=== PATIENT | female | born 1970 | race African-American/Black ===

== ENCOUNTER 2019-12-09 10:29 | Outpatient (CLI) | payer OTHER, SELFPAY ==
[2019-12-09 10:57] LABS: INR 2.1; Prothrombin Time 21.4 Seconds (9.64-11.0)
== END 2019-12-09 10:30 | disposition home or self-care (01) ==
PROVIDERS: PCP Physician Assistant; Visit Provider Physician Assistant
DX: Z95.2 Presence of prosthetic heart valve (principal)
CPT/HCPCS: 36415; 85610

== ENCOUNTER 2020-01-16 10:02 | Outpatient (CLI) | payer OTHER, SELFPAY ==
[2020-01-16 10:47] LABS: INR 2.2; Prothrombin Time 22.5 Seconds (9.64-11.0)
== END 2020-01-16 10:03 | disposition home or self-care (01) ==
LOC: CHSLAB 10:05
PROVIDERS: PCP Physician Assistant; Visit Provider Physician Assistant
DX: Z95.2 Presence of prosthetic heart valve (principal)
CPT/HCPCS: 36415; 85610

== ENCOUNTER 2020-02-04 12:45 | Outpatient (CLI) | payer OTHER, SELFPAY ==
[2020-02-04 13:07] LABS: INR 1.3; Prothrombin Time 13.4 Seconds (9.64-11.0)
== END 2020-02-04 12:46 | disposition home or self-care (01) ==
LOC: CHSLAB 12:46
PROVIDERS: PCP Physician Assistant; Visit Provider Physician Assistant
DX: Z95.2 Presence of prosthetic heart valve (principal)
CPT/HCPCS: 36415; 85610

== ENCOUNTER 2020-03-11 14:51 | Outpatient (CLI) | payer OTHER, SELFPAY ==
[2020-03-11 15:31] LABS: INR 1.8; Prothrombin Time 18.1 Seconds (9.64-11.0)
== END 2020-03-11 14:52 | disposition home or self-care (01) ==
LOC: CHSLAB 14:53
PROVIDERS: PCP Physician Assistant; Visit Provider Physician Assistant
DX: I48.91 Unspecified atrial fibrillation (principal)
CPT/HCPCS: 36415; 85610

== ENCOUNTER 2020-05-17 07:43 | Outpatient (CLI) | payer OTHER, SELFPAY ==
--- NOTE | ~2020-05-17 | US_ITS ---
US abdomen complete EXAMINATION: US Abdomen Complete INDICATION: Leukopenia PROCEDURE: Realtime High Resolution abdomen ultrasound. COMPARISON: No prior studies for comparison FINDINGS: There is a gallbladder polyp. No gallstones, gallbladder wall thickening or pericholecystic fluid. Common bile duct measures 3 mm. Liver echotexture fatty infiltration of the liver.. Pancreas within normal limits. Pancreatic tail is obscured by bowel gas. Spleen is unremarkeable. Renal echotexture is within normal limits bilater ally without hydronephrosis, contour deforming mass or renal stone. Right kidney measures 8.7 cm. Lef t kidney measures 8.4 cm. Visualized aspects of the aorta and IVC are within normal limits. Portal vein is patent. No sonograph ic Gonzales's sign indicated by the technologist. IMPRESSION: 1: Gallbladder polyp measuring 5 mm 2: Hepatic steatosis. Reviewed, dictated and finalized at location A. GER WOUND
== END 2020-05-17 07:44 | disposition home or self-care (01) ==
PROVIDERS: PCP Physician Assistant; Visit Provider Internal Medicine Hematology & Oncology
DX: D72.819 Decreased white blood cell count, unspecified (principal); K76.0 Fatty (change of) liver, not elsewhere classified; K82.4 Cholesterolosis of gallbladder
CPT/HCPCS: 76700

== ENCOUNTER 2021-03-30 09:58 | Emergency (ER) | payer OTHER, SELFPAY ==
[2021-03-30 10:25] VITALS: BP 134/101; PULSE 85; RESP 20; TEMP 36.7; O2SAT 100
--- NOTE | 2021-03-30 11:02 | ED.RECABL ---
HPI - Recheck/Abnormal Lab/Rx General Chief Complaint: Recheck/Abnormal Lab/Rx Stated Complaint: INR IS HIGH DR SENT TO ER Source: patient and family Mode of arrival: ambulatory History of Present Illness HPI narrative: This is a 50-year-old female with a history of aortic valve replacement currently on Coumadin 5mg daily, the patient had a PT INR drawn and was advised to come to the emergency department. Patient has no bleeding is in no acute distress no nosebleeds, no rectal bleeding currently no bleeding whatsoever the patient is comfortable with no chest pain no shortness of breath no headaches no abdominal pain. Related Data Home Medications Medication Instructions Recorded Confirmed amlodipine 10 mg PO DAILY 03/30/21 03/30/21 bupropion HCl 150 mg PO BID 03/30/21 03/30/21 folic acid 1 mg PO DAILY 03/30/21 03/30/21 metoprolol succinate 50 mg PO DAILY 03/30/21 03/30/21 quetiapine 25 mg PO DAILY 03/30/21 03/30/21 warfarin 5 mg PO DAILY 03/30/21 03/30/21 Allergies Allergy/AdvReac Type Severity Reaction Status Date / Time doxycycline Allergy Unknown Hives Unverified 03/30/21 10:33 Review of Systems Review of Systems: All systems reviewed & are unremarkable except as noted in HPI and below PMFSH Past Medical History Medical History History of Coumadin therapy Exam Const: General: no acute distress Orientation/consciousness: patient oriented x3 HENMT: Head: normal to inspection Eyes: Conjunctivae: conjunctivae normal Pupils: Equal, round and reactive pupils present EOM: EOMs intact bilaterally Direct Ophthalmoscopy: no photophobia Neck: Neck: normal visual inspection Chest: Chest palpation & inspection: normal inspection of the chest Resp: Effort & Inspection: normal respiratory effort Cardio: Rate: regular rate Rhythm: regular rhythm GI: GI Palp: Yes Soft to palpation Percussion: Yes normal to percussion : General: Yes no CVA tenderness Urinary Catheter: Urinary Catheter: patent and draining Skin: General skin exam: normal color Rashes: no rashes Neuro: General: patient oriented x3 and moves all extremities Extrem: General: normal to inspection and no pedal edema Psych: Mental Status: mental status grossly normal Affect: normal affect Course Course Emergency Course: patient received 10mg of IM vitamin K, and will check PT INR in 24hours her current PT INR in the ER was 8 advised to not take her Coumadin this evening and check PT INR in the morning Vital Signs Vital signs: Vital Signs Temperature 36.7 C 03/30/21 10:25 Pulse Rate 85 03/30/21 10:25 Respiratory Rate 20 03/30/21 10:25 Blood Pressure 134/101 H 03/30/21 10:25 Pulse Oximetry 100 03/30/21 10:25 Temperature 36.7 C 03/30/21 10:25 Pulse Rate 85 03/30/21 10:25 Respiratory Rate 20 03/30/21 10:25 Blood Pressure 134/101 H 03/30/21 10:25 Pulse Oximetry 100 03/30/21 10:25 MDM - Recheck/Abnormal Lab/Rx Lab Data Labs: Lab Results 03/30/21 Range/Units 10:25 PT 90.0 H (9.50-12.10) Seconds INR 8.0 H* Critical Care Time Critical Care Time Critical Care Time: No Discharge Plan Discharge Clinical Impression: Warfarin-induced coagulopathy Patient Disposition: Home, Self-Care Condition: Stable Instructions: Antibiotic Form Additional Instructions: order given to have PT INR drawn at approximately 10:00 a.m. tomorrow March 31, 2021 and results to her provider. Advised to hold her nighttime dose of Coumadin. Prescriptions: No Action quetiapine 25 mg tablet 25 mg PO DAILY RF: 0 bupropion HCl 150 mg tablet sustained-release 12 hr 150 mg PO BID RF: 0 metoprolol succinate 50 mg tablet extended release 24 hr 50 mg PO DAILY RF: 0 amlodipine 10 mg tablet 10 mg PO DAILY RF: 0 warfarin 5 mg tablet 5 mg PO DAILY RF: 0 folic acid 1 mg tablet 1 mg PO DAILY RF: 0 Foll
[2021-03-30] MEDS: PHYTONADIONE INJ 10 MG/ML AMP IM (11:07)
[2021-03-30 11:35] VITALS: BP 132/99; PULSE 85; RESP 20; O2SAT 99
== END 2021-03-30 11:38 | disposition home or self-care (01) ==
PROVIDERS: Emergency Provider Emergency Medicine; PCP Physician Assistant
DX: D68.9 Coagulation defect, unspecified (principal); Z79.01 Long term (current) use of anticoagulants
CPT/HCPCS: 36415; 85610; 96372; 99283; J3430

== ENCOUNTER 2023-04-07 12:14 | Emergency (ER) | payer OTHER, SELFPAY ==
--- NOTE | ~2023-04-07 | CT_ITS ---
EXAMINATION: CT abdomen pelvis w con DATE: 04/07/2023 13:42 INDICATION: LUQ and left flank pain w/ n/v/constipation TECHNIQUE: Computed tomography (CT) of the abdomen and pelvis was performed with 100 mL Omnipaque-350 intravenous contrast. Automated exposure control and iterative reconstruction technique were employe d. The dose-length product was 175.97 mGy-cm. COMPARISON: Ultrasound abdomen 05/17/2020. FINDINGS: Lower thorax: Scattered bilateral tree-in-bud opacities. Scattered air cysts. Dystrophic/granulomatou s calcification cardiac valve replacements. Liver: Normal. Biliary/Gallbladder: Gallbladder is normal. No bile duct dilation. Pancreas: No mass or duct dilation. Spleen: Normal. Adrenals:No mass. Kidneys: Wedge-shaped segmental hypodensity in the left midpole. Subtle cortical rim sign. No suspici ous mass, hydronephrosis, or obstructing calcification. GI tract: Mild distal esophageal and gastric wall edema. No small or large bowel dilation. Appendix n ot confidently visualized Mesentery/Peritoneum: No ascites, mass, or free air. Retroperitoneum: No mass. Atherosclerotic abdominal aortic and/or arterial calcifications. Pelvis: Pelvic organs are within normal limits. Subcentimeter left perineal cyst. Soft Tissues: Soft tissues and body wall unremarkable. Bones: No acute osseous finding. IMPRESSION: Mild esophagitis/gastritis. Subsegmental left midpole renal infarct. Reviewed, dictated and finalized at location K. HER OPERATOR
[2023-04-07 12:17] VITALS: BP 155/104; PULSE 99; RESP 18; TEMP 36.1; O2SAT 100
--- NOTE | 2023-04-07 12:20 | ED.ABDPAIN ---
HPI - Abdominal Pain General Chief Complaint: Abdominal Pain Stated Complaint: L side/back pain Time Seen by Provider: 04/07/23 12:20 Source: patient and RN notes reviewed Mode of arrival: ambulatory Limitations: no limitations History of Present Illness MD elicited complaint: flank pain Onset (ago): day(s) (1) Pain Consistency: intermittent Location: LUQ and L flank Severity: moderate Quality: stabbing and sharp Radiation: none Migration to: no migration Exacerbating factors: nothing Relieving factors: nothing Associated symptoms: nausea and vomiting Related Data Home Medications Medication Instructions Recorded Confirmed amlodipine 10 mg tablet 10 mg PO DAILY 03/30/21 04/07/23 bupropion HCl 150 mg tablet,12 hr 150 mg PO BID 03/30/21 04/07/23 sustained-release folic acid 1 mg tablet 1 mg PO DAILY 03/30/21 04/07/23 escitalopram oxalate 10 mg tablet 10 mg PO DAILY 04/07/23 04/07/23 gabapentin 300 mg capsule 300 mg PO TID 04/07/23 04/07/23 potassium chloride 20 mEq 20 meq PO DAILY 04/07/23 04/07/23 tablet,extended release(part/cryst) (Klor-Con M) rivaroxaban 15 mg tablet (Xarelto) 15 mg PO DAILY 04/07/23 04/07/23 Allergies Allergy/AdvReac Type Severity Reaction Status Date / Time doxycycline Allergy Unknown Hives Verified 04/07/23 12:28 Review of Systems Review of Systems: All systems reviewed & are unremarkable except as noted in HPI and below PMFSH Past Medical History Medical History (Updated 04/07/23 @ 15:11 by Bebeto Moreland MD) History of Coumadin therapy Surgical History Surgical History (Updated 04/07/23 @ 12:36 by Bebeto Moreland MD) Aortic valve replaced Mitral valve replaced Exam Const: General: no acute distress, alert and ill appearing acutely Nutritional Appearance: well nourished and thin Orientation/consciousness: patient oriented x3 Limitations: no limitations HENMT: Head: normal to inspection Ears: external ears normal Face/Nose/Sinus: Normal external nose present Face and sinus: normal facial exam Mouth: Yes moist mucous membranes Eyes: Conjunctivae: conjunctivae normal Pupils: Equal, round and reactive pupils present EOM: EOMs intact bilaterally Neck: Neck: normal visual inspection Resp: Effort & Inspection: normal respiratory effort Auscultation: clear to auscultation bilaterally Cardio: Rate: regular rate Rhythm: regular rhythm Heart sounds: Murmur heart sound present continuous holo, IV/, at the apex and at the left sternal border ( with opening snap) GI: GI Palp: Yes Soft to palpation, Yes Tenderness to palpation present (GI) ( moderate LUQ) and Yes Guarding due to palpation present (GI) ( moderate LUQ) Auscultation: normal bowel sounds Back/Spine/Pelvis: Back: CVA tenderness ( moderate left flank) Cervical Spine: cervical ROM normal Thoracic/Lumbar Spine: thoraco-lumbar ROM normal Skin: General skin exam: normal color Rashes: no rashes Neuro: General: patient oriented x3, moves all extremities, no focal motor deficits and CN's II-XI intact bilaterally Speech: normal speech Gait exam (Neuro): Normal gait present Extrem: General: normal to inspection and no clubbing, cyanosis or edema Psych: Mental Status: mental status grossly normal Affect: normal affect Attitude: cooperative MDM - Abdominal Pain MDM Narrative Medical decision making narrative: discussion with the radiologist regarding the report. I asked him if this was new and he said it was acute injury. I asked about considering a CT angiogram. He felt that there would be no new findings there must be a thrombus and that she still has a wedge infarction of the left kidney. I discussed findings with the patient she voiced understanding and advised that she should either see a vascular surgeon or possibly a receiving specialist. For now put her on some pain medication and anti nausea medication. Differential Diagnosis Differential diagnosis: Likely calculus of kidney, constipation, diverticul
[2023-04-07 12:38] LABS: Bilirubin Urine 3+ (Negative); Blood Urine Trace-Intact (Negative); Glucose Urine UA Negative (Negative); Ketones Urine 3+ (Negative); Leukocyte Esterase Ur Negative LEU/UL (Negative); Nitrate Urine Negative (Negative); Protein Urine 1+ (Negative); Specific Grav Ur >= 1.030 (1.010-1.020)
[2023-04-07] MEDS: KETOROLAC 30 MG/ML VIAL (*BKC) IV PUSH (12:42)
[2023-04-07 12:48] LABS: Color Urine Dark Yellow (Yellow)
[2023-04-07 12:49] LABS: Add Urine Microscopic? YES; Amorphous Sediment Urine Few; Appearance Urine Slightly Cloudy (Clear); Bacteria Urine 1+ /hpf; Mucus Urine Heavy /lpf; RBC Urine 0-2 /hpf (0-2); Squamous Epithelial Cell Urine Many /hpf (Few)
[2023-04-07 13:08] LABS: Basophils Absolute Auto 0.02 K/mm3 (0.00-0.10); Basophils Percent Auto 0.3 % (0.0-1.0); Eosinophils Absolute Auto 0.02 K/mm3 (0.02-0.50); Eosinophils Percent Auto 0.3 % (1.0-6.0); Hematocrit 38.4 % (35.0-49.0); Hemoglobin 13.4 g/dL (12.0-15.0); Immature Granulocyte Absolute 0.03 K/mm3 (0.00-0.00); Immature Granulocyte Percent A 0.4 % (0.0-0.0); Lymphocytes Absolute Auto 0.35 K/mm3 (1.10-4.50); Lymphocytes Percent Auto 4.5 % (18.0-42.0); Mean Corpuscular HGB Conc 34.9 g/dL (32.0-36.0); Mean Corpuscular Volume 106.1 fL (78.0-102.0); Mean Platelet Volume 10.3 fl (9.2-11.8); Monocytes Absolute Auto 0.63 K/mm3 (0.10-0.90); Monocytes Percent Auto 8.2 % (2.0-11.0); Neutrophils Absolute Auto 6.7 K/mm3 (1.7-7.2); Neutrophils Percent Auto 86.3 % (50.0-70.0); Platelet Count Result 210 K/mm3 (150-420); Red Blood Count 3.62 M/mm3 (4.20-5.40); Red Cell Distribution Width 12.5 % (11.6-14.4); White Blood Count 7.7 K/mm3 (4.8-10.8)
[2023-04-07 13:18] LABS: Pregnancy On Board Control Positive; Urine Pregnancy Test Negative
[2023-04-07 13:19] LABS: Anion Gap 16 mmol/L (8-16); Blood Urea Nitrogen 18 mg/dL (7-18); CRP 0.7 mg/dL (0.0-0.9); Calcium 9.9 mg/dL (8.5-10.1); Carbon Dioxide 24 mmol/L (21-32); Chloride 95 mmol/L (98-108); Estimated Glomerular Filt Rate > 60; Glucose 88 mg/dL (70-99); Osmolality Calculated 280 mOsm/kg (285-295); Potassium 3.3 mmol/L (3.5-5.1); Sodium 135 mmol/L (136-145)
[2023-04-07 14:09] VITALS: BP 118/81; PULSE 91; RESP 20; O2SAT 99
[2023-04-07 15:14] VITALS: BP 135/87; PULSE 87; RESP 18; TEMP 36.7; O2SAT 98
== END 2023-04-07 15:21 | disposition home or self-care (01) ==
PROVIDERS: Emergency Provider Emergency Medicine; PCP Physician Assistant
DX: N28.0 Ischemia and infarction of kidney (principal); Z79.899 Other long term (current) drug therapy; Z79.01 Long term (current) use of anticoagulants
CPT/HCPCS: 36415; 74177; 80048; 81001; 81025; 85025; 86140; 96374; 99284; J1885; Q9967

== ENCOUNTER 2023-11-15 15:18 | Emergency (ER) | payer OTHER, SELFPAY ==
--- NOTE | ~2023-11-15 | XR_ITS ---
EXAMINATION: XR ankle LT min 3V DATE: 11/15/2023 15:45 INDICATION: Left ankle injury and pain. TECHNIQUE: 4 views of left ankle were obtained. COMPARISON: None. FINDINGS: Bone alignment is normal. No fracture. Joint spaces are normal. IMPRESSION: 1. No fracture. Reviewed, dictated and finalized at location A. IMPRESSION: 1. No fracture.
[2023-11-15 15:20] VITALS: BP 115/90; PULSE 95; RESP 18; TEMP 36.1; O2SAT 97
--- NOTE | 2023-11-15 15:22 | ED.LOWEXIN ---
HPI - Extremity Injury (Lower) General Chief Complaint: Extremity Injury, Lower Stated Complaint: left ankle pain Time Seen by Provider: 11/15/23 15:21 Source: patient Mode of arrival: wheelchair Limitations: no limitations History of Present Illness HPI Narrative: Patient is a 52-year-old female with a left ankle injury today. She was staying on the roof for car and started to step down using the door handle and her left ankle slipped and sustained injury. This was an accident. She was playing with the grand kids. MD complaint: ankle injury ( Left) Onset (ago): hour(s) (2) Injury: Left: ankle Type of Injury: blunt and inversion Place: street/outdoors Severity: moderate Severity scale (1-10): 7 Relieving factors: cold therapy and immobilization Exacerbating factors: movement and palpation Context: direct blow Associated symptoms: snap/pop sensation, swelling, numbness, tingling and unable to bear weight Other symptoms: none Treatments prior to arrival: cold therapy Related Data Home Medications Medication Instructions Recorded Confirmed amlodipine 10 mg tablet 10 mg PO DAILY 03/30/21 04/07/23 bupropion HCl 150 mg tablet,12 hr 150 mg PO BID 03/30/21 04/07/23 sustained-release folic acid 1 mg tablet 1 mg PO DAILY 03/30/21 04/07/23 escitalopram oxalate 10 mg tablet 10 mg PO DAILY 04/07/23 04/07/23 gabapentin 300 mg capsule 300 mg PO TID 04/07/23 04/07/23 potassium chloride 20 mEq 20 meq PO DAILY 04/07/23 04/07/23 tablet,extended release(part/cryst) (Klor-Con M) rivaroxaban 15 mg tablet (Xarelto) 15 mg PO DAILY 04/07/23 04/07/23 Allergies Allergy/AdvReac Type Severity Reaction Status Date / Time doxycycline Allergy Unknown Hives Verified 04/07/23 12:28 Review of Systems Review of Systems: All systems reviewed & are unremarkable except as noted in HPI and below Constitutional: Constitutional: Reports no additional constitutional complaints Eyes: Eyes: Reports no additional eye complaints ENT: Reports system reviewed and no additional complaints, except as documented Cardiovascular: Cardiovascular: Reports no additional cardiovascular complaints Respiratory: Respiratory: Reports no additional respiratory complaints Gastrointestinal: Gastrointestinal: Reports no additional gastrointestinal complaints Genitourinary: Genitourinary: Reports no additional female genitourinary complaints Musculoskeletal: Musculoskeletal: Reports no additional musculoskeletal complaints Integumentary/Breasts: Skin/Breast: Reports system reviewed and no additional complaints, except as docu Neurologic: Reports system reviewed and no additional complaints, except as documented Psychiatric: Psychiatric: Reports no additional psychiatric complaints Endocrine: Endocrine: Reports no additional endocrine complaints Hematologic/Lymphatic: Hematologic/Lymphatic: Reports no additional hematologic/lymphatic complaints Allergic/Immunologic: Allergic/Immunologic: Reports no additional allergic/immunologic complaints [facility] Past Medical History Medical History History of Coumadin therapy Surgical History Surgical History Aortic valve replaced Mitral valve replaced Exam Const: General: healthy appearing Nutritional Appearance: well nourished Orientation/consciousness: patient oriented x3 HENMT: Head: normal to inspection Ears: external ears normal Face/Nose/Sinus: Normal external nose present Eyes: Conjunctivae: conjunctivae normal Pupils: Equal, round and reactive pupils present EOM: EOMs intact bilaterally Neck: Neck: normal visual inspection Chest: Chest palpation & inspection: normal inspection of the chest Resp: Effort & Inspection: normal respiratory effort and not labored Auscultation: clear to auscultation bilaterally Cardio: Rate: regular rate Rhythm: regular rhythm Heart sounds: no murm
[2023-11-15] MEDS: KETOROLAC (*BKC) 60 MG/2 ML VIAL IM (15:39)
[2023-11-15 16:13] VITALS: BP 125/88; PULSE 72; RESP 18; TEMP 36.6; O2SAT 97
== END 2023-11-15 16:13 | disposition home or self-care (01) ==
PROVIDERS: Emergency Provider Emergency Medicine; PCP Physician Assistant
DX: S93.402A Sprain of unspecified ligament of left ankle, initial encounter (principal); W01.0XXA Fall on same level from slipping, tripping and stumbling without subsequent striking against object, initial encounter
CPT/HCPCS: 73610; 96372; 99283; J1885

== ENCOUNTER 2024-02-20 18:23 | Observation (INO) | payer OTHER, SELFPAY ==
[2024-02-20] VITALS (8 sets, daily range): BP systolic 118–125; BP diastolic 82–87; PULSE 84–103; RESP 14–29; TEMP 36.6; O2SAT 97–100; BMI 17.4
--- NOTE | ~2024-02-20 | XR_ITS ---
HISTORY: shortness of breath COMPARISON: None TECHNIQUE: 2 views of the soft tissues of the neck were performed FINDINGS: Normal delineation of the pharynx and trachea. Limited visualization of the larynx, likely secondary to patient positioning. Paravertebral soft tissues demonstrate anterior to posterior dimensions within the upper limits of no rmal. No evidence of radiopaque foreign bodies or gas within the soft tissues. Within the cervical spine, straightening of the normal curvature is present. Narrowing of the interve rtebral disc spaces is also noted along with anterior osteophyte formation. IMPRESSION: Anterior to posterior dimension of the prevertebral soft tissues are within the upper li mits of normal, as detailed above. Reviewed, dictated and finalized at location A. IMPRESSION: Anterior to posterior dimension of the prevertebral soft tissues a re within the upper limits of normal, as detailed above.
[2024-02-20] MEDS: EPINEPHrine HCL INJ 1 MG/ML AMPUL 0.3 MG IM (18:27)
--- NOTE | 2024-02-20 18:29 | ECG_ITS ---
Test Date: 2024-02-20 18:58:58 Measurements Intervals [place] Rate: 96 P: 65 WV: 133 QRS: 48 QRSD: 76 T: 76 QT: 385 QTc: 488 Interpretive Statements SINUS RHYTHM MILD NONSPECIFIC ST SEGMENT ABNORMALITY BORDERLINE ECG No previous ECG available for comparison Electronically Signed On 02-21-2024 12:44:24 CDT by Milan Burch M.D.
[2024-02-20 18:50] LABS: Hematocrit 34.9 % (35.0-49.0); Hemoglobin 11.9 g/dL (12.0-15.0); Mean Corpuscular HGB Conc 34.1 g/dL (32-36); Mean Corpuscular Hemoglobin 34.5 pg (27.0-31.0); Mean Corpuscular Volume 101.2 fL (78.0-102.0); Mean Platelet Volume 9.7 fl (9.2-11.8); Platelet Count Result 220 K/mm3 (150-420); Red Blood Count 3.45 M/mm3 (4.20-5.40); Red Cell Distribution Width 12.6 % (11.6-14.4); White Blood Count 2.9 K/mm3 (4.8-10.8)
[2024-02-20] MEDS: methylPREDNISolone ACETATE 40 MG/ML VIAL 80 MG IM (18:52)
--- NOTE | 2024-02-20 19:01 | PC.NURSE ---
PT IS CURRENTLY RESTING ON STRETCHER IN EXAM ROOM AT THIS TIME, NAD NOTED. PT REPORTS SHE IS FEELING BETTER AT THIS TIME. THE SWELLING TO LIPS HAS IMPROVED. WILL CONTINUE TO MONITOR.
[2024-02-20 19:08] LABS: Alanine Aminotransferase 26 U/L (14-59); Albumin Level 3.9 g/dL (3.4-5.0); Alkaline Phosphatase 114 U/L (46-116); Anion Gap 20 mmol/L (4-12); Aspartate Amino Transferase 51 U/L (15-37); Bilirubin,Total 0.9 mg/dL (0.00-1.00); Blood Urea Nitrogen 16 mg/dL (7-18); Calcium 9.1 mg/dL (8.5-10.1); Carbon Dioxide 17 mmol/L (21-32); Chloride 92 mmol/L (98-108); Estimated CRCL calculation 38 ml/min; Estimated Glomerular Filt Rate > 60; Glucose 51 mg/dL (70-99); Osmolality Calculated 266 mOsm/kg (285-295); Potassium 3.7 mmol/L (3.5-5.1); Sodium 129 mmol/L (136-145); Total Protein 8.4 g/dL (6.4-8.2)
[2024-02-20 19:13] LABS: Band Neutrophils Percent 0 % (0-6); Basophils Absolute Manual 0.11 K/mm3 (0-0.1); Basophils Percent Manual 4 % (0-1); Eosinophils Percent Manual 0 % (1-6); Lymphocytes Absolute Manual 1.01 K/mm3 (1.1-4.5); Lymphocytes Percent Manual 35 % (18-44); Monocytes Absolute Manual 0.49 K/mm3 (0.1-0.90); Monocytes Percent Manual 17 % (3-9); Neutrophils Absolute Manual 1.27 K/mm3 (1.7-7.2); Neutrophils Percent Manual 44 % (46-73); Platelet Estimate Adequate (Adequate)
[2024-02-20 19:19] LABS: Glucose Point of Care 54 mg/dl (65-105)
--- NOTE | 2024-02-20 19:19 | PC.NURSE ---
PT REPORTS SHE HAS NOT EATEN IN 2 DAYS, I HAVE A LOT GOING ON. PT REPORTS SHE HAS BEEN DRINKING TODAY. PT STATES SHE FEELS LIKE SHE IS ABLE TO SWALLOW AT THIS TIME. FSBS WAS CHECKED DUE TO LAB RESULT OF 51. FSBS IS 54, ERP IS AWARE. RN MERRITT TO CONTINUE CARE. PT IS A&OX4.
[2024-02-20 19:47] LABS: Ethanol 214 mg/dL (0-6)
[2024-02-20] MEDS: THIAMINE HCL INJ 100 MG, FOLIC ACID 1 MG, MULTIVITAMINS-12 INJ 10 ML, MAGNESIUM SULFATE... IV CONT (19:49)
--- NOTE | 2024-02-20 19:52 | ED_ITS ---
HPI - Anxiety General Chief Complaint: Allergic Reaction Stated Complaint: DIFFICULTY BREATHING Time Seen by Provider: 02/20/24 18:24 Source: patient Limitations: no limitations History of Present Illness HPI narrative: this is a 53 year female with a history of aortic valve replacement history of alcohol abuse presents with anxiety with shortness of breath. The patient states that over the past day or so she has been having increased stress and anxiety does have a history alcohol abuse currently feels like she is short of breath with throat tightness. There is no audible wheezing no chest pain no nausea vomiting no abdominal pain no dysuria or hematuria. MD complaint: anxiety and shortness of breath Onset (ago): day(s) Symptoms: dyspnea Severity: moderate Place: home Related Data Home Medications Medication Instructions Recorded Confirmed amlodipine 10 mg tablet 10 mg PO DAILY 03/30/21 02/20/24 bupropion HCl 150 mg tablet,12 hr 150 mg PO BID 03/30/21 02/20/24 sustained-release folic acid 1 mg tablet 1 mg PO DAILY 03/30/21 02/20/24 potassium chloride 20 mEq 20 meq PO DAILY 04/07/23 02/20/24 tablet,extended release(part/cryst) (Klor-Con M) rivaroxaban 15 mg tablet (Xarelto) 15 mg PO DAILY 04/07/23 02/20/24 Allergies Allergy/AdvReac Type Severity Reaction Status Date / Time doxycycline Allergy Unknown Hives Verified 04/07/23 12:28 Review of Systems Review of Systems: All systems reviewed & are unremarkable except as noted in HPI and below PMFSH Past Medical History Medical History History of Coumadin therapy Surgical History Surgical History Aortic valve replaced Mitral valve replaced Exam Const: General: healthy appearing, no acute distress and alert Nutritional Appearance: well nourished Orientation/consciousness: patient oriented x3 Limitations: no limitations HENMT: Head: normal to inspection Face and sinus: normal facial exam Mouth: Yes Normal oral and palatal mucosa present Eyes: Conjunctivae: conjunctivae normal Pupils: Equal, round and reactive pupils present Neck: Neck: normal visual inspection, no lymphadenopathy and no meningeal signs Chest: Chest palpation & inspection: normal inspection of the chest Resp: Effort & Inspection: normal respiratory effort Auscultation: clear to auscultation bilaterally Cardio: Rate: regular rate Rhythm: regular rhythm GI: GI Palp: Yes Soft to palpation Auscultation: normal bowel sounds : General: Yes bladder normal to palpation Skin: General skin exam: normal color Rashes: no rashes Neuro: General: patient oriented x3 Psych: Affect: Anxious affect present Course Course Emergency Course: Patient with some severe anxiety and alcohol use had a sensation that her throat was closing patient did receive epinephrine and Depo-Medrol had soft tissue x-ray which shows no evidence of any acute abnormalities with a normal x- ray of the soft tissue neck. Patient blood work performed which shows that she had a serum sodium of 129. The patient had an alcohol level that was over 200. Patient was started on banana bag and will admit under hospitalist Service. Patient had a blood glucose of 51 Vital Signs Vital signs: Vital Signs Temperature 36.6 C 02/20/24 18:23 Pulse Rate 98 02/20/24 18:23 Respiratory Rate 18 02/20/24 18:23 Blood Pressure 118/87 02/20/24 18:23 Pulse Oximetry 100 02/20/24 18:23 Oxygen Delivery Room Air 02/20/24 18:23 Temperature 36.6 C 02/20/24 18:23 Pulse Rate 96 02/20/24 19:00 Respiratory Rate 19 02/20/24 19:00 Blood Pressure 125/82 02/20/24 19:00 Pulse Oximetry 98 02/20/24 19:00 Oxygen Delivery Room Air 02/20/24 18:23 MDM - Anxiety Lab Data 02/20/24 18:46 02/20/24 18:46 Labs: Lab Results 02/20/24 02/20/24 02/20/24 Range/Units 18:46 19:18 19:37 WBC 2.9 L (4.8-10.8) K/mm3 RBC 3.45 L (4.20-5.40) M/mm3 Hgb 11.9 L (12.0-15.0) g/dL Hct 34.9 L (35.0-49.0) % MCV 101.2 (78.0-102.0) fL MCH 34.5 H (27.0-31.0) pg MCHC 34.1 (32-36) g/dL RDW 12.6 (11.6-14.4) % Plt Count 220 (150-420) K/mm3 MPV 9.7 (9.2-11.8) fl Immature Gran % (Auto) Not Reportable Neut % (Auto) Not Reportable Lymph % (Auto) Not Reportable [place] % (Auto) Not Reportable Eos % (Auto) Not Reportable Baso % (Auto) Not Reportable Lymph # (Auto) Not Reportable [place] # (Auto) Not Reportable Eos # (Auto) Not Reportable Baso # (Auto) Not Reportable Abs Immat Gran (auto) Not Reportable Absolute Neuts (auto) Not Reportable Absolute Nucleated RBC Not Reportable Neutrophils % (Manual) 44 L (46-73) % Band Neutrophils % 0 (0-6) % Lymphocytes % (Manual) 35 (18-44) % Monocytes % (Manual) 17 H (3-9) % Eosinophils % (Manual) 0 L (1-6) % Basophils % (Manual) 4 H (0-1) % Nucleated RBC % Not Reportable Abs Neuts (Manual) 1.27 L (1.7-7.2) K/mm3 Abs Lymphs (Manual) 1.01 L (1.1-4.5) K/mm3 Abs Monocytes (Manual) 0.49 (0.1-0.90) K/mm3 Absolute Eos (Manual) 0.00 L (0.02-0.50) K/mm3 Abs Basophils (Manual) 0.11 H (0-0.1) K/mm3 Platelet Estimate Adequate (Adequate) Schistocytes Not Reportable Sodium 129 L (136-145) mmol/L Potassium 3.7 (3.5-5.1) mmol/L Chloride 92 L (98-108) mmol/L Carbon Dioxide 17 L (21-32) mmol/L Anion Gap 20 H (4-12) mmol/L BUN 16 (7-18) mg/dL Creatinine 1.07 H (0.55-1.02) mg/dL Estim Creat Clear Calc 38 ml/min Estimated GFR > 60 (59 - ) Glucose 51 L (70-99) mg/dL POC Capillary Glucose 54 L* (65-105) mg/dl Calculated Osmolality 266 L (285-295) mOsm/kg Calcium 9.1 (8.5-10.1) mg/dL Total Bilirubin 0.9 (0.00-1.00) mg/dL AST 51 H (15-37) U/L ALT 26 (14-59) U/L Alkaline Phosphatase 114 (46-116) U/L Total Protein 8.4 H (6.4-8.2) g/dL Albumin 3.9 (3.4-5.0) g/dL Ethyl Alcohol 214 H* (0-6) mg/dL Critical Care Time Critical Care Time Critical Care Time: No Discharge Plan Discharge Clinical Impression: Alcohol abuse, Acute hyponatremia, Acute anxiety Patient Disposition: Acute Care Hospital [facility] Condition: Guarded Prognosis Prescriptions: No Action bupropion HCl 150 mg tablet sustained-release 12 hr 150 mg PO BID amlodipine 10 mg tablet 10 mg PO DAILY folic acid 1 mg tablet 1 mg PO DAILY potassium chloride [Klor-Con M20] 20 mEq tablet,ER particles/crystals 20 meq PO DAILY Xarelto 15 mg tablet 15 mg PO DAILY Follow-up/Referrals: Kamron,JIAN Dunn [Primary Care Provider] - Time of Disposition: 19:57
[2024-02-20 20:17] LABS: Glucose Point of Care 122 mg/dl (65-105)
--- NOTE | 2024-02-20 20:29 | PC.NURSE ---
Pt ate turkey sandwich and fruit cup. Is now sleeping.
[2024-02-20] MEDS: ACETAMINOPHEN 325 MG TABLET 650 MG PO (21:27)
[2024-02-20] MEDS: chlordiazePOXIDE (*CRX) 5 MG CAPSULE PO (21:27)
--- NOTE | 2024-02-20 21:30 | ADMGEN ---
This patient, Lena Thornton, was admitted to 2nd Floor Room 207-1. Patient/family oriented to hospital policies and general routines including ID bracelet, bed and alarms, visiting hours, pain management, procedures, bathroom and other care routines, personal items, smoking policy, room service/diet, and visiting hours. Information on how to activate the Rapid Response Team has been discussed. Patient/Family are encouraged to report perceived risks to care and to ask questions if they do not understand what they are told or what they should do.
[2024-02-21] VITALS: BP 112/59; PULSE 84; RESP 16; TEMP 36.9; O2SAT 99
[2024-02-21] MEDS: chlordiazePOXIDE (*CRX) 5 MG CAPSULE PO (06:07)
[2024-02-21 07:41] LABS: Hematocrit 36.8 % (35.0-49.0); Hemoglobin 12.7 g/dL (12.0-15.0); Mean Corpuscular HGB Conc 34.5 g/dL (32-36); Mean Corpuscular Hemoglobin 34.6 pg (27.0-31.0); Mean Corpuscular Volume 100.3 fL (78.0-102.0); Mean Platelet Volume 9.6 fl (9.2-11.8); Platelet Count Result 204 K/mm3 (150-420); Red Blood Count 3.67 M/mm3 (4.20-5.40); Red Cell Distribution Width 12.4 % (11.6-14.4); White Blood Count 2.3 K/mm3 (4.8-10.8)
[2024-02-21 08:00] VITALS: BP 159/91; PULSE 107; RESP 14; TEMP 36.2; O2SAT 100
[2024-02-21 08:04] LABS: Alanine Aminotransferase 25 U/L (14-59); Albumin Level 3.9 g/dL (3.4-5.0); Alkaline Phosphatase 112 U/L (46-116); Anion Gap 13 mmol/L (4-12); Aspartate Amino Transferase 41 U/L (15-37); Bilirubin,Total 1.2 mg/dL (0.00-1.00); Blood Urea Nitrogen 12 mg/dL (7-18); Calcium 9.1 mg/dL (8.5-10.1); Carbon Dioxide 23 mmol/L (21-32); Chloride 95 mmol/L (98-108); Estimated CRCL calculation 42 ml/min; Estimated Glomerular Filt Rate > 60; Glucose 74 mg/dL (70-99); Osmolality Calculated 270 mOsm/kg (285-295); Potassium 4.3 mmol/L (3.5-5.1); Sodium 131 mmol/L (136-145); Total Protein 8.5 g/dL (6.4-8.2)
[2024-02-21 08:06] LABS: INR 0.9
[2024-02-21 08:12] LABS: Band Neutrophils Percent 0 % (0-6); Basophils Absolute Manual 0.06 K/mm3 (0-0.1); Basophils Percent Manual 3 % (0-1); Eosinophils Percent Manual 0 % (1-6); Lymphocytes Absolute Manual 0.85 K/mm3 (1.1-4.5); Lymphocytes Percent Manual 37 % (18-44); Monocytes Absolute Manual 0.25 K/mm3 (0.1-0.90); Monocytes Percent Manual 11 % (3-9); Neutrophils Absolute Manual 1.12 K/mm3 (1.7-7.2); Neutrophils Percent Manual 49 % (46-73); Platelet Estimate Adequate (Adequate); Total Cells Counted 100
[2024-02-21 08:31] LABS: Add Urine Microscopic? NO; Appearance Urine Clear (Clear); Bilirubin Urine Negative (Negative); Blood Urine Trace-intact (Negative); Color Urine Light Yellow (Yellow); Glucose Urine UA Negative (Negative); Ketones Urine 3+ (Negative); Leukocyte Esterase Ur Negative LEU/UL (Negative); Nitrate Urine Negative (Negative); Protein Urine Negative (Negative); Urobilinogen Urine 0.2 mg/dL (0.2-1.0)
[2024-02-21 09:07] LABS: Ethanol < 3 mg/dL (0-6)
--- NOTE | 2024-02-21 10:38 | P.SS_ITS ---
Same Day Admit/Disch: HPI History of Present Illness Chief complaint: HYPONATREMIA ACUTE ANXIETY ETOH TOXICITY Narrative: Lena Thornton is a 53 year old female [facility] Past Medical History Medical History History of Coumadin therapy Surgical History Surgical History Aortic valve replaced Mitral valve replaced Social History Social History Smoking status: Current every day smoker Tobacco type: cigars Second hand tobacco smoke exposure: No Alcohol intake: current Drinks per week: 20 Substance use: current Substance use type: marijuana Do You Feel Safe in your Home?: Yes Lack of Transportation: No Lack of Food: Never True Current Housing: I Have Housing Concerned About Future Housing: No Difficulty Paying Gas/Electric Bills: No Difficulty Paying for Meds: No Currently Unemployed: No Education: High School Diploma/GED Difficulty w/ Childcare or Family Care: No Spiritual care concerns: No Same Day Admit/Disch: Med Pre-admit Medications Home Medications Medication Instructions Recorded Confirmed Type amlodipine 10 mg tablet 10 mg PO DAILY 03/30/21 02/20/24 History bupropion HCl 150 mg tablet,12 hr 150 mg PO BID 03/30/21 02/20/24 History sustained-release folic acid 1 mg tablet 1 mg PO DAILY 03/30/21 02/20/24 History potassium chloride 20 mEq 20 meq PO DAILY 04/07/23 02/20/24 History tablet,extended release(part/cryst) (Klor-Con M) rivaroxaban 15 mg tablet (Xarelto) 15 mg PO DAILY 04/07/23 02/20/24 History multivitamin with folic acid 400 1 tablet PO QAM #30 tabs 02/21/24 Rx mcg tablet (Thera) thiamine HCl (vitamin B1) 100 mg 100 mg PO QAM #30 tabs 02/21/24 Rx tablet (Vitamin B-1) Review of Systems Review of Systems All systems reviewed & are unremarkable except as noted in HPI and below Exam Narrative: Physical Exam: * GENERAL: Alert and oriented x 3. No acute distress. * EYES: EOMI. No scleral icterus. PERRLA. * HEENT: Moist mucous membranes. * LUNGS: Clear to auscultation bilaterally. No accessory muscle use. * CARDIOVASCULAR: Regular rate and rhythm. No murmur. No JVD. S1-S2 * ABDOMEN: Soft, non tenderness and non-distended. No palpable masses. * EXTREMITIES: No edema. Non-tender * SKIN: No rashes or lesions. Skin warm, dry. * NEUROLOGIC: No focal neurological deficits. CN II-XII grossly intact * PSYCHIATRIC: Appropriate mood and affect. Good judgement and insight. No visual or auditory hallucinations. No suicidal or homicidal ideation. DS: Data Data Completed and Pending Labs on day of discharge: Labs from last 24 hours 02/21/24 02/21/24 02/21/24 08:18 07:51 07:31 WBC 2.3 L RBC 3.67 L Hgb 12.7 Hct 36.8 MCV 100.3 MCH 34.6 H MCHC 34.5 RDW 12.4 Plt Count 204 MPV 9.6 Immature Gran % (Auto) Not Reportable Neut % (Auto) Not Reportable Lymph % (Auto) Not Reportable [place] % (Auto) Not Reportable Eos % (Auto) Not Reportable Baso % (Auto) Not Reportable Lymph # (Auto) Not Reportable [place] # (Auto) Not Reportable Eos # (Auto) Not Reportable Baso # (Auto) Not Reportable Abs Immat Gran (auto) Not Reportable Absolute Neuts (auto) Not Reportable Absolute Nucleated RBC Not Reportable Total Counted 100 Neutrophils % (Manual) 49 Band Neutrophils % 0 Lymphocytes % (Manual) 37 Monocytes % (Manual) 11 H Eosinophils % (Manual) 0 L Basophils % (Manual) 3 H Nucleated RBC % Not Reportable Abs Neuts (Manual) 1.12 L Abs Lymphs (Manual) 0.85 L Abs Monocytes (Manual) 0.25 Absolute Eos (Manual) 0.00 L Abs Basophils (Manual) 0.06 Platelet Estimate Adequate Schistocytes Not Reportable PT 10.0 INR 0.9 Sodium 131 L Potassium 4.3 Chloride 95 L Carbon Dioxide 23 Anion Gap 13 H BUN 12 Creatinine 0.95 Estim Creat Clear Calc 42 Estimated GFR > 60 Glucose 74 POC Capillary Glucose Calculated Osmolality 270 L Calcium 9.1 Magnesium 2.0 Total Bilirubin 1.2 H AST 41 H ALT 25 Alkaline Phosphatase 112 Total Protein 8.5 H Albumin 3.9 Urine Color Light yellow Urine Appearance Clear Urine pH 6.0 Ur Specific [place] 1.020 Urine Protein Negative Urine Glucose (UA) Negative Urine Ketones 3+ H Ur Blood (Man) Trace-intact H Urine Nitrate Negative Urine Bilirubin Negative Urine Urobilinogen 0.2 Leukocyte Esterase Rfl Negative Ethyl Alcohol < 3 Methyl Alcohol Level Pending 02/20/24 02/20/24 02/20/24 20:15 19:37 19:18 WBC RBC Hgb Hct MCV MCH MCHC RDW Plt Count MPV Immature Gran % (Auto) Neut % (Auto) Lymph % (Auto) [place] % (Auto) Eos % (Auto) Baso % (Auto) Lymph # (Auto) [place] # (Auto) Eos # (Auto) Baso # (Auto) Abs Immat Gran (auto) Absolute Neuts (auto) Absolute Nucleated RBC Total Counted Neutrophils % (Manual) Band Neutrophils % Lymphocytes % (Manual) Monocytes % (Manual) Eosinophils % (Manual) Basophils % (Manual) Nucleated RBC % Abs Neuts (Manual) Abs Lymphs (Manual) Abs Monocytes (Manual) Absolute Eos (Manual) Abs Basophils (Manual) Platelet Estimate Schistocytes PT INR Sodium Potassium Chloride Carbon Dioxide Anion Gap BUN Creatinine Estim Creat Clear Calc Estimated GFR Glucose POC Capillary Glucose 122 H 54 L* Calculated Osmolality Calcium Magnesium Total Bilirubin AST ALT Alkaline Phosphatase Total Protein Albumin Urine Color Urine Appearance Urine pH Ur Specific [place] Urine Protein Urine Glucose (UA) Urine Ketones Ur Blood (Man) Urine Nitrate Urine Bilirubin Urine Urobilinogen Leukocyte Esterase Rfl Ethyl Alcohol 214 H* Methyl Alcohol Level 02/20/24 18:46 WBC 2.9 L RBC 3.45 L Hgb 11.9 L Hct 34.9 L MCV 101.2 MCH 34.5 H MCHC 34.1 RDW 12.6 Plt Count 220 MPV 9.7 Immature Gran % (Auto) Not Reportable Neut % (Auto) Not Reportable Lymph % (Auto) Not Reportable [place] % (Auto) Not Reportable Eos % (Auto) Not Reportable Baso % (Auto) Not Reportable Lymph # (Auto) Not Reportable [place] # (Auto) Not Reportable Eos # (Auto) Not Reportable Baso # (Auto) Not Reportable Abs Immat Gran (auto) Not Reportable Absolute Neuts (auto) Not Reportable Absolute Nucleated RBC Not Reportable Total Counted Neutrophils % (Manual) 44 L Band Neutrophils % 0 Lymphocytes % (Manual) 35 Monocytes % (Manual) 17 H Eosinophils % (Manual) 0 L Basophils % (Manual) 4 H Nucleated RBC % Not Reportable Abs Neuts (Manual) 1.27 L Abs Lymphs (Manual) 1.01 L Abs Monocytes (Manual) 0.49 Absolute Eos (Manual) 0.00 L Abs Basophils (Manual) 0.11 H Platelet Estimate Adequate Schistocytes Not Reportable PT INR Sodium 129 L Potassium 3.7 Chloride 92 L Carbon Dioxide 17 L Anion Gap 20 H BUN 16 Creatinine 1.07 H Estim Creat Clear Calc 38 Estimated GFR > 60 Glucose 51 L POC Capillary Glucose Calculated Osmolality 266 L Calcium 9.1 Magnesium Total Bilirubin 0.9 AST 51 H ALT 26 Alkaline Phosphatase 114 Total Protein 8.4 H Albumin 3.9 Urine Color Urine Appearance Urine pH Ur Specific [place] Urine Protein Urine Glucose (UA) Urine Ketones Ur Blood (Man) Urine Nitrate Urine Bilirubin Urine Urobilinogen Leukocyte Esterase Rfl Ethyl Alcohol Methyl Alcohol Level Imaging Radiologist's impression: HISTORY: shortness of breath COMPARISON: None TECHNIQUE: 2 views of the soft tissues of the neck were performed FINDINGS: Normal delineation of the pharynx and trachea. Limited visualization of the larynx, likely secondary to patient positioning. Paravertebral soft tissues demonstrate anterior to posterior dimensions within the upper limits of normal. No evidence of radiopaque foreign bodies or gas within the soft tissues. Within the cervical spine, straightening of the normal curvature is present. Narrowing of the intervertebral disc spaces is also noted along with anterior osteophyte formation. IMPRESSION: Anterior to posterior dimension of the prevertebral soft tissues are within the upper limits of normal, as detailed above. DS: Summary Hospital Course Reason for hospitalization: HYPONATREMIA ACUTE ANXIETY ETOH TOXICITY Hospital Course: Patient was a 53-year old female who presented to the emergency department with complaints of her throat closing. Patient stated she has been under a lot of stress due to social stressors. Patient stated she was on her way to her grandson's game when she started having difficulty breathing and feelings of her throat closing. Patient has a past medical history of anxiety, depression, ETOH abuse, HTN, aortic and mitral valve replacement. In the emergency room patient was treated for possible anaphylaxis with epi IM, methylprednisone and Benadryl per ER physician there was no audible wheezing or stridor and patient was protecting her airway. After treatment patient did report she has history of panic attacks and that was likely the cause she was found to have an EtOH greater than 200 in hyponatremia of 129. Patient denied any chest pain, nausea, vomiting, fever chills. Patient did report she normally takes Wellbutrin but had not picked up her prescription prior to arrival. There was a CT scan of soft tissue to the neck that showed no acute issues. Patient was given a banana bag and IV fluids and started on Librium. I resumed her folic acid and started her on thiamine and a muti-vitamin. Patient with overall improvement to symptoms and tolerating oral intake the following day. I encouraged immediate ETOH cessation. Of note patient also had Neutropenia which is likely secondary to her high consumption of alcohol recommended she follow-up with her primary for follow-up labs and montoring. Status at Discharge Functional status at discharge: independent ambulation Overall status at discharge: patient is back to baseline Time Spent with Patient Time attestation: Total time spent providing and/or coordinating discharge services: Time spent: Greater than 30 minutes DS: Admitting Diagnosis Discharge Date 02/21/2024 Admitting Diagnosis HYPONATREMIA ACUTE ANXIETY ETOH TOXICITY DS: Discharge Diagnosis Discharge Diagnosis (1) Alcohol abuse: Code(s): F10.10 - Alcohol abuse, uncomplicated Status: Acute (2) Acute hyponatremia: Code(s): E87.1 - Hypo-osmolality and hyponatremia Status: Acute (3) Acute anxiety: Code(s): F41.9 - Anxiety disorder, unspecified Status: Acute (4) Neutropenia: Code(s): D70.9 - Neutropenia, unspecified Status: Acute (5) Chronic anticoagulation: Code(s): Z79.01 - bed bug exterminator (current) use of anticoagulants Status: Acute Discharge Plan Discharge Attending physician on discharge: Hugo Shields Discharging Clinician: Regina Swift Anticipated Discharge Date/Time: 02/21/24 10:29 Patient Disposition: Home, Self-Care Activity: may shower, unlimited and as tolerated Diet: heart healthy Discharge Instructions: You are being discharged after treatment for hyponatremia (low sodium levels), dehydration, alcohol abuse, and anxiety attack. I have added thiamine to you discharge medications please take as prescribed. encourage alcohol cessation and increase water intake for proper hydration. You also have Neutropenia (which is low white blood cells) this can out you at higher risk for infection and can be induced from over consumption of alcohol. Continue with meetings with your counselor outpatient for anxiety and take medication as prescribed. Alternative calming methods may include music, meditation, or exercise Please review the education attached How can you care for yourself at home? ? Keep track of any new symptoms or changes in your symptoms. ? Rest until you feel better. ? Be safe with medicines. Take your medicines exactly as prescribed. Call your doctor if you think you are having a problem with your medicine. ? Do not drive after taking a prescription pain medicine. ? Ensure to follow-up with primary care physician as indicated and provide updated medication list provided to you at discharge. When should you call for help? Call 911 anytime you think you may need emergency care. For example, call if: ? You passed out (lost consciousness). Call your doctor now or seek immediate medical care if: ? You have new symptoms like fever, difficulty breathing, Chest pain, vomiting, or rash. ? You have new or different pain. ? You are confused and are having trouble thinking clearly. ? Your symptoms are getting worse. Watch closely for changes in your health, and be sure to contact your doctor if: ? You do not get better as expected. Patient Instructions: Antibiotic Form, Hyponatremia (DC), Depression (DC), Abuse of Alcohol (DC), Neutropenia (DC), Anxiety (ED) Patient Language: [place] Stand Alone Forms: General Discharge Information Follow-up/Referrals: Kamron,JIAN Dunn [Primary Care Provider] - Keep Reg. Scheduled Appt. Discharge Medications: New thiamine HCl (vitamin B1) [Vitamin B-1] 100 mg Tablet 100 mg PO QAM Qty: 30 0RF multivitamin with folic acid [Thera] 400 mcg Tablet 1 tablet PO QAM Qty: 30 0RF Continued bupropion HCl 150 mg tablet sustained-release 12 hr 150 mg PO BID amlodipine 10 mg tablet 10 mg PO DAILY folic acid 1 mg tablet 1 mg PO DAILY potassium chloride [Klor-Con M20] 20 mEq tablet,ER particles/crystals 20 meq PO DAILY Xarelto 15 mg tablet 15 mg PO DAILY Date of admission: 02/20/24 19:58 Primary Care Provider: Kamron,Jose Daniel Robledo Admitting Provider: Hugo Shields Attending physician on admission: Regina Swift Condition: Improved Quality VTE Prophylaxis VTE prophylaxis: pharmacologic ordered -Patient's previous records reviewed on admission -ER notes reviewed in detail on admission -discussed all findings and current treatment plan with patient/Family/POA -Consultations reviewed for recommendations -Patient's disposition for safe discharge discussed with director of casework department Dictation performed by [employer] direct speech recognition software, therefore certified legal secretary specialist variants and typographical errors may occur. Hospitalist MIPS Advance Care Plan I have confirmed that the patient's Advanced Care Plan is present, code status is documented, or surrogate decision maker is listed in patient medical record.: Yes Medication Reconciliation I have utilized all available resources to obtain, update and review the patients current medications (includes all prescriptions, OTC, herbals, cannabis, and nutritional supplements).: Yes The patient is not eligible for med reconciliation; the patient is in a emergent medical situation where delaying treatment would jeopardize the patients health.: No Heart Failure (Exclusion) Patient has history of Heart Transplant or Left Ventricular Assistive Device?: No IF YES, STOP HERE Heart Failure (Qualifier) Patient has current or prior documentation of LVEF less than or equal to 40%, or mod/servere depressed LVSF?: No IF NO, STOP HERE
[2024-02-21] MEDS: DOCUSATE SODIUM 100 MG CAPSULE PO (10:54)
[2024-02-21] MEDS: amLODIPine BESYLATE 5 MG TABLET 10 MG PO (10:54)
[2024-02-21] MEDS: MULTIVITAMINS THERAPEUTIC TAB (*BKC) 1 TABLET PO (10:54)
[2024-02-21] MEDS: THIAMINE HCL 100 MG TABLET PO (11:20)
[2024-02-21] MEDS: FOLIC ACID 1 MG TABLET PO (11:21)
[2024-02-21] MEDS: POTASSIUM CHLORIDE 20 MEQ ER TABLET PO (11:21)
[2024-02-21] MEDS: buPROPion HCL SR (12 HR) 150 MG TAB PO (11:22)
--- NOTE | 2024-02-21 11:49 | PC.NURSE ---
Pt discharged to home. discharge instructions given to pt. Medications reviewed with pt, follow up appointment with PCP discussed. RN and pt had a discussion about alcohol use and cutting back on the amount ingested. Pt verbalized understanding of all instructions.
--- NOTE | 2024-02-21 11:54 | PC.NURSE ---
Pt IV discontinued by RN. Cannula intact and dressing applied.
--- NOTE | 2024-02-25 12:42 | PC.NURSE ---
Discharge call back attempted, no answer
--- NOTE | 2024-02-27 09:36 | PC.NURSE ---
Saw Dr Lundy in follow up yesterday, no questions or concerns regarding dc instructions
== END 2024-02-21 11:30 | disposition home or self-care (01) ==
LOC: CHSED 19:58 → CHS2ND 20:23
PROVIDERS: Admitting Provider Internal Medicine; Emergency Provider Emergency Medicine; PCP Physician Assistant; Visit Provider Nurse Practitioner Family
DX: T51.0X1A Toxic effect of ethanol, accidental (unintentional), initial encounter (principal); E87.1 Hypo-osmolality and hyponatremia; E86.0 Dehydration; D70.8 Other neutropenia; F10.188 Alcohol abuse with other alcohol-induced disorder; Y90.7 Blood alcohol level of 200-239 mg/100 ml; F41.9 Anxiety disorder, unspecified; F32.A Depression, unspecified; I10 Essential (primary) hypertension; F17.290 Nicotine dependence, other tobacco product, uncomplicated; Z95.2 Presence of prosthetic heart valve; Z79.01 Long term (current) use of anticoagulants; Z79.899 Other long term (current) drug therapy; Z88.1 Allergy status to other antibiotic agents
CPT/HCPCS: 36415; 70360; 80053; 81003; 82077; 82948; 83735; 84600; 85025; 85610; 93005; 96365; 96366; 96372; 99285; A9270; G0378; J0171; J1010; J3411; J3475; J7030